=== PATIENT | male | born 1975 | race Caucasian/White ===

== ENCOUNTER 2017-05-07 14:52 | Emergency (ER) | payer OTHER ==
--- NOTE | 2017-05-07 16:01 | RAD ---
CHEST ONE VIEW: HISTORY: Chest pain. COMPARISON: None. FINDINGS: Cardiac silhouette is magnified by projection. Pulmonary vasculature is slightly engorged. Subtle o pacity at the right medial lung base obscures the right cardiac margin. There is no evidence of pneu mothorax. media monitor leads overlie the chest. IMPRESSION: Right middle lobe infiltrate. Clinical correlation regarding other signs and symptoms of right middl e lobe pneumonitis is required. Please consider upright PA and lateral views of the chest when patie nt can undergo that exam. POS: [facility]
[2017-05-07] MEDS ORDERED: Aspirin 325 MG TAB ONE (16:20)
[2017-05-07] MEDS ORDERED: Lorazepam 2 MG/ML VIAL ONE (16:20)
[2017-05-07 16:46] LABS: Prothrombin Time 13.2 SEC (12.0-14.7)
[2017-05-07 16:48] LABS: Bilirubin Negative (Negative); Blood, Urine Trace (Negative); Glucose, Urine (Dipstick) Negative (Negative); Leukocyte Negative (Negative); Nitrite Negative (Negative); Protein, Urine (Dipstick) 30 mg/dL (Neg-Trace); Specific Gravity, Urine 1.015 (1.005-1.030); Urobilinogen > or = 8.0 mg/dL (0.2-1.0)
--- NOTE | 2017-05-07 16:49 | CT ---
CT HEAD NONCONTRAST: History: Headache. Difficulty speaking. Right arm pain. FINDINGS: No comparison. There is no evidence of acute intracranial hemorrhage or infarct. The ventricles appea r normal in size, shape, and position. There is no mass effect or shift of midline structures. IMPRESSION: No acute intracranial abnormalities are demonstrated on noncontrast CT head. POS: [facility]
--- NOTE | 2017-05-07 16:50 | CT ---
CT CERVICAL SPINE NONCONTRAST: History: Neck and right arm pain. FINDINGS: Disc space narrowing and osteophytosis are most pronounced at the C5-6 level. No acute fracture or di slocation are apparent. There is straightening of the normal lordotic curvature. Cervicothoracic junc tion is intact. IMPRESSION: Degenerative changes of the cervical spine. No acute osseous abnormalities are demonstrated. POS: [facility]
[2017-05-07 16:54] LABS: Band 7 % (5-11); Hemoglobin 16.4 g/dL (14.0-18.0); Lymphocytes 7 % (21-51); MDiff Complete? YES; Mean Corpuscular HGB CONC 33.5 g/dL (32.0-36.0); Mean Corpuscular Hemoglobin 31.2 pg (27.0-31.0); Mean Corpuscular Volume 93.2 fl (80.0-94.0); Mean Platelet Volume 8.7 fL (7.4-10.4); Monocytes 5 % (0-10); Neutrophil 81 % (42-75); PLT Morphology Comment Appears Adequate; Platelet Count 270 thou/uL (130-400); RBC Distribution Width 12.5 % (11.5-14.5); Red Blood Cell (RBC) Count 5.25 mill/uL (4.70-6.10); White Blood Cell (WBC) Count 16.5 thou/uL (4.8-10.8)
[2017-05-07 16:56] LABS: Bacteria/HPF Rare-Few HPF (None Seen); Clarity Hazy (Clear); RBC/HPF 0-3 HPF (0-3); Squamous Epithelial None Seen HPF (0-3); WBC/HPF None Seen HPF (0-3)
[2017-05-07 16:58] LABS: ALT (SGPT) 26 U/L (8-55); AST (SGOT) 16 U/L (5-34); Alkaline Phosphatase 72 U/L (40-150); Anion Gap 15 mmol/L (10-20); BUN (Urea Nitrogen) 15 mg/dL (8.9-20.6); Bilirubin, Total 3.3 mg/dL (0.2-1.2); CK (CPK) 74 U/L (30-200); Calc. Creatinine Clearance 0 mL/min (70-130); Carbon Dioxide 26 mmol/L (22-29); Chloride 102 mmol/L (98-107); Estimated GFR-MDRD 84; Globulin 2.9 g/dL (2.4-3.5); Glucose 112 mg/dL (70-105); Protein, Total 6.9 g/dL (6.0-8.3); Sodium 139 mmol/L (136-145)
[2017-05-07 16:59] LABS: CKMB 0.9 ng/mL (0-6.6); Troponin I Less than 0.010 ng/mL (< 0.028)
== END 2017-05-07 18:05 | disposition home or self-care (01) ==
LOC: MADERS 14:52
DX: J18.9 Pneumonia, unspecified organism (principal); E05.90 Thyrotoxicosis, unspecified without thyrotoxic crisis or storm; Z79.899 Other long term (current) drug therapy
CPT/HCPCS: 36415; 70450; 71010; 72125; 80053; 81001; 82550; 82553; 83880; 84443; 84484; 85025; 85610; 87040; 87086; 93005; 96374; J2060